=== PATIENT | female | born 1995 | race Caucasian/White ===

== ENCOUNTER 2018-01-28 02:05 | Emergency (ER) | payer BC ==
[~2018-01-28] VITALS: Ht 167.6 cm; Wt 114.7 kg
[2018-01-28 02:08] VITALS: TEMP 37.4; Ht 167.6 cm; Wt 114.7 kg
[2018-01-28] MEDS ORDERED: CIPRO 0.2%/HYDROCORTISONE 1% OTIC SUSP 10 ML BTL OT ONE (02:30)
[2018-01-28] MEDS ORDERED: NORCO 5/325MG HOME PACK PO ONE (02:30)
[2018-01-28 02:56] VITALS: BP 139/74; PULSE 85; O2SAT 96
--- NOTE | 2018-01-28 08:19 | EMERGENCY ROOM VISIT NOTE ---
ED Visit Note First contact with patient: 02:17 CHIEF COMPLAINT: Earache HISTORY OF PRESENT ILLNESS: This 23-year-old female patient presents to the emergency department and states they have had a right sided earache worsening over the past 2 days. The pain is moderate, and is gradually increasing. They have noticed swelling and tenderness around the ear canal and pain below the ear on the upper neck. The pain is rated as dull and 7/10. The patient has did not been swimming recently. The patient does not have a history of ear problems. The patient has had other URI symptoms and is currently on Augmentin from her PCP for OM. The patient has do not had a fever. The patient has taken nothing [id number] for relief of the pain. REVIEW OF SYSTEMS: A 6 system review of systems was completed with positives and pertinent negatives listed in the HPI. ALLERGIES: No known allergies MEDICATIONS: See EMR PMH: See EMR SOCIAL HISTORY: Lives locally PHYSICAL EXAM: Vital Signs: Reviewed Nurse's notes, vital signs stable. GENERAL : White female, in no acute distress, non toxic in appearance, well developed, well nourished. SKIN: Normal. MOUTH: The pharynx is normal in appearance and the tonsils are not enlarged. The airway is patent. There are no exudates over the tonsils. EARS: The right external auditory canal is swollen and inflamed and there is positive tragal tenderness. The tympanic membrane is not visualized. The Left tympanic membrane is pearly alvarado without erythema or bulging and the external auditory canal is clear. HEART: Regular rate and rhythm without murmurs gallops or rubs. LUNGS: Clear to auscultation bilaterally without wheezes, rales or rhonchi. No dullness to percussion. No accessory muscle use. No retractions. ED COURSE: I examined the patient. A wick was easily placed in the right ear by myself. Cipro HC otic drops were placed in the right ear. She will be given a home pack of Vicodin. The patient was discharged home in stable condition. Allergies Coded Allergies: No Known Allergies (Unverified , 01/28/18) Vital Signs Date Time Temp Pulse Resp B/P (MAP) Pulse Ox O2 Delivery O2 Flow Rate FiO2 01/28/18 02:56 85 16 139/74 96 01/28/18 02:08 37.4 91 16 146/98 96 Room Air Medications Administered Medications (Trade) Dose Ordered Sig/Rupa Route Start Time Stop Time Status Last Admin Dose Admin Ciprofloxacin/ Hydrocortisone (Cipro Hc Otic Susp) 2 drops NOW ONCE OT 01/28/18 02:30 3 02:31 DC 01/28/18 02:36 2 DROPS Acetaminophen/ Hydrocodone Bitart ([place] 5/325mg Home Pack) 1 homepack UD ONCE PO 01/28/18 02:30 01/28/18 02:31 DC 01/28/18 02:36 1 HOMEPACK Departure Information Impression Primary Impression: Right otitis externa Dispostion Home / Self-Care Condition GOOD Forms HOME CARE DOCUMENTATION FORM, IMPORTANT VISIT INFORMATION Patient Instructions My [facility], ED Otitis Externa Additional Instructions You were seen and evaluated today on an emergency basis only. This is not a substitute for, or an effort to provide, complete comprehensive medical care. It is not possible to recognize and treat all injuries or illnesses in a single emergency department visit. For this reason it is recommended that you followup with your primary care physician next week with any ongoing or persistent symptoms. Use Cipro HC drops: 3 drops into the right ear twice daily for the next 7 days For baseline pain relief you may alternate ibuprofen and acetaminophen every 4 hours for pain control. Take 600 mg ibuprofen (Advil) and then 4 hours later take 1000 mg acetaminophen (Tylenol). Do not take more than 3000 mg acetaminophen in a single day. [place] (hydrocodone/acetaminophen) 5/325 mg (homepack) every 6 hours as needed for worsening breakthrough pain. Do not drink or drive on [place]. This medication will likely make you tired. Do not take [place] and Tylenol at the same time as both contain acetaminophen. [place] may cause constipation. You may wish to take an [id number] stool softener like Colace if this occurs. You are welcome to return to the emergency department anytime with new, worsening, or concerning symptoms.
[2018-01-29] MEDS ORDERED: IBUP-1050 PO (15:20)
[2018-01-29] MEDS ORDERED: SERT-234 PO (15:20)
[2018-01-29] MEDS ORDERED: SACC250C3 PO (17:46)
[2018-01-29] MEDS ORDERED: CPR750 PO (17:46)
== END 2018-01-28 02:57 | disposition home or self-care (01) ==
LOC: C.EDB 02:06 → C.EDA 02:57
DX: H60.91 Unspecified otitis externa, right ear (principal)

== ENCOUNTER 2018-01-29 13:11 | Emergency (ER) | payer BC ==
[~2018-01-29] VITALS: Ht 167.6 cm; Wt 112.7 kg
[2018-01-29 13:15] VITALS: TEMP 36.8; Ht 167.6 cm; Wt 112.7 kg
--- NOTE | 2018-01-29 13:35 | EMERGENCY ROOM VISIT NOTE ---
History Report prepared by Sharonda: Ronaldo Campbell Under the Supervision of: Dr. Jaspreet Fernandez M.D. First contact with patient: 13:20 Chief Complaint: FACIAL PAIN/INJURY Stated Complaint: SWOLLEN FACE, EAR, JAW, NECK PAIN History of Present Illness The patient is a 23 year old female who presents to the Emergency Room with complaints of worsening right ear pain that started 2 weeks ago. She states that she was seen here yesterday morning for what was diagnosed as an external right ear infection. The patient says that the ear pain has been worsening and she is now having swelling that is spreading to the right side of her face, jaw , and mouth. She states that she had been on Amoxicillin 2 weeks ago, and finished that, but the swelling started again a few days ago, so she was put on another antibiotic. She adds that she had a wick put in the right ear when she was here yesterday morning. The patient notes that she has been nauseous but that may be due to not eating much due to difficulty opening her jaw. She says that she has been able to drink, and she does not have problems swallowing. The patient adds that she has been having some chills. The patient denies any fevers , cough, congestion, vomiting, or diarrhea. The patient notes that she has not been swimming recently. She adds that she has a history of hypertension under stressful situations. Source of History: patient Onset: 2 weeks ago Position: ear (right) Quality: other (pain) Timing: worsening Associated Symptoms: + chills, + nausea, No fevers, No cough (or congestion) , No vomiting, No diarrhea Note: Associated symptoms: Right-sided facial swelling. Review of Systems See HPI for pertinent positives and negatives. A total of ten systems were reviewed and were otherwise negative. Past Medical & Surgical Medical Problems: (1) HTN (hypertension) Family History Hypertension Social History Smoking Status: Never Smoker Smokeless Tobacco Use: No Alcohol Use: occasionally Occupation Status: employed Current/Historical Medications Scheduled Ciprofloxacin (Ciprofloxacin HCl), 1 TAB PO BID Saccharomyces Boulardii (Florastor), 1 CAP PO BID Sertraline (Zoloft), 100 MG PO DAILY Scheduled PRN Ibuprofen (Advil), 200-600 MG PO UD PRN for Pain Allergies Coded Allergies: No Known Allergies (Unverified , 01/29/18) Physical Exam Vital Signs Date Time Temp Pulse Resp B/P (MAP) Pulse Ox O2 Delivery O2 Flow Rate FiO2 01/29/18 18:24 63 20 158/82 97 Room Air 01/29/18 16:15 62 16 151/97 95 Room Air 01/29/18 14:43 60 16 132/90 99 Room Air 01/29/18 13:15 36.8 70 18 159/101 97 Room Air Physical Exam GENERAL: Awake, alert, uncomfortable-appearing, in no distress HENT: Dry mucous membranes. Erythema and edema to the right auricle, pre and post auricular region with mastoid tenderness. External right auditory canal is edematous with serous discharge. Right TM with injection and edema, mild right submandibular edema. No oropharyngeal edema, tongue elevation, or trismus. No pain with tracheal manipulation, no stridor. EYES: Normal conjunctiva. Sclera non-icteric. NECK: Supple. No nuchal rigidity. FROM. No JVD. RESPIRATORY: Clear to auscultation. CARDIAC: Regular rate, normal rhythm. Extremities warm and well perfused. Pulses equal. ABDOMEN: Soft, non-distended. No tenderness to palpation. No rebound or guarding. No masses. RECTAL: Deferred. MUSCULOSKELETAL: Chest examination reveals no tenderness. The back is symmetrical on inspection without obvious abnormality. There is no CVA tenderness to palpation. No joint edema. LOWER EXTREMITIES: Calves are equal size bilaterally and non-tender. No edema. No discoloration. NEURO: Normal sensorium. No sensory or motor deficits noted. SKIN: No rash or jaundice noted. Medical Decision & Procedures ER Provider Diagnostic Interpretation: Radiology results as stated below per my review and radiologist interpretation: SOFT TISSUE NECK WITH CLINICAL HISTORY: 23 years-old Female presenting with right mastoid redness/swelling, r/o mastoiditis/ludwigs angina, right hand pain and difficulty hearing from right year, right facial swelling. TECHNIQUE: Multidetector CT of the neck was performed 115 mL of Optiray 320. IV contrast: None. A dose lowering technique was used consistent with the principles of ALARA (as low as reasonably achievable). COMPARISON: None. CT DOSE (mGy.cm): The estimated cumulative dose is 642.29 mGy.cm. FINDINGS: Oral Surgery Physician topogram: Unremarkable. Limited intracranial evaluation within normal limits. Lipoma noted in the region of the tuber cinereum. Orbits normal. Mucosal thickening of the ethmoid air cells. Trace fluid in the right mastoid air cells with opacification of the right middle ear. Partial opacification/obstruction of the right external auditory canal. Prominence of adenoidal lymphoid tissue in the nasopharynx. No osseous erosion or mar intracranial extension. Adjacent vasculature remain patent. Mild periauricular inflammatory change. No evidence of suspicious nodular enhancement to suggest a mass. Valleculae and piriform sinuses preserved. No displacement of the parapharyngeal fat planes. Several enlarged bilateral cervical lymph nodes primarily in the jugulodigastric region, measuring up to 2.3 cm in the long axis on the right and 1.8 cm in the long axis on the left. Thyroid normal. Submandibular and parotid glands normal. Cervical spine normal. Lung apices clear. IMPRESSION: 1. Findings consistent with acute otitis media of the right middle ear and likely reactive inflammatory change and swelling of the right external auditory canal and periauricular soft tissues. 2. Bilateral reactive cervical lymphadenopathy. Electronically signed by: Matty Casey M.D. 01/29/2018 3:14 PM Dictated Date/Time: 01/29/2018 3:06 PM CHEST ONE VIEW PORTABLE CLINICAL HISTORY: 23 years-old Female presenting with Evaluate Fever/Sepsis. TECHNIQUE: Portable upright AP view of the chest was obtained. COMPARISON: None. FINDINGS: Cardiopericardial silhouette mildly prominent allowing for AP technique. Lungs and pleural spaces clear. Osseous structures normal. Upper abdomen normal. IMPRESSION: 1. Mildly prominent cardiopericardial silhouette otherwise no acute cardiopulmonary disease. Electronically signed by: Matty Casey M.D. 01/29/2018 2:12 PM Dictated Date/Time: 01/29/2018 2:11 PM SOFT TISSUE NECK W/O CONTRAST CLINICAL HISTORY: 23 years-old Female presenting with Right mastoid swelling, redness, ttp r/o mastoiditis. TECHNIQUE: Multisequence, multiplanar MR imaging of the neck was performed without the use of intravenous contrast. IV contrast: None. COMPARISON: Contrast enhanced CT of the neck performed earlier the same day. FINDINGS: Localizer images: Unremarkable. Fluid in the right middle ear and right mastoid air cells. Extensive soft tissue swelling of the right external auditory canal. Multiple prominent right intraparotid lymph nodes. Subcutaneous edema noted in the right periauricular region and extending inferiorly along the superficial subcutaneous tissue overlying the right parotid gland. Mild prominence of adenoidal lymphoid tissue, likely reactive. Prominent bilateral cervical lymph nodes in the jugulodigastric region, likely reactive. No prevertebral edema or retropharyngeal fluid collection. Cervical spine normal. Limited intracranial evaluation normal. Temporomandibular joints normal. IMPRESSION: Redemonstration of findings suspicious for right acute otitis media with fluid in the mastoid air cells and significant inflammatory change in the right external auditory canal and adjacent soft tissues. Electronically signed by: Matty Casey M.D. 01/29/2018 5:03 PM Dictated Date/Time: 01/29/2018 5:00 PM Laboratory Results 01/29/18 13:54 Red Blood Count 5.19, Mean Corpuscular Volume 84.2, Mean Corpuscular Hemoglobin 27.2, Mean Corpuscular Hemoglobin Concent 32.3, Mean Platelet Volume 11.0, Neutrophils (%) (Auto) 71.8, Lymphocytes (%) (Auto) 18.2, Monocytes (%) (Auto) 7.6, Eosinophils (%) (Auto) 1.9, Basophils (%) (Auto) 0.3, Neutrophils # (Auto) 7.00, Lymphocytes # (Auto) 1.78, Monocytes # (Auto) 0.74, Eosinophils # (Auto) 0.19, Basophils # (Auto) 0.03 01/29/18 13:54 Test 01/29/18 13:54 White Blood Count 9.76 K/uL (4.8-10.8) Red Blood Count 5.19 M/uL (4.2-5.4) Hemoglobin 14.1 g/dL (12.0-16.0) Hematocrit 43.7 % (37-47) Mean Corpuscular Volume 84.2 fL (80-100) Mean Corpuscular Hemoglobin 27.2 pg (25-34) Mean Corpuscular Hemoglobin Concent 32.3 g/dl (32-36) Platelet Count 235 K/uL (130-400) Mean Platelet Volume 11.0 fL (7.4-10.4) Neutrophils (%) (Auto) 71.8 % Lymphocytes (%) (Auto) 18.2 % Monocytes (%) (Auto) 7.6 % Eosinophils (%) (Auto) 1.9 % Basophils (%) (Auto) 0.3 % Neutrophils # (Auto) 7.00 K/uL (1.4-6.5) Lymphocytes # (Auto) 1.78 K/uL (1.2-3.4) Monocytes # (Auto) 0.74 K/uL (0.11-0.59) Eosinophils # (Auto) 0.19 K/uL (0-0.5) Basophils # (Auto) 0.03 K/uL (0-0.2) RDW Standard Deviation 40.6 fL (36.4-46.3) RDW Coefficient of Variation 13.2 % (11.5-14.5) Immature Granulocyte % (Auto) 0.2 % Immature Granulocyte # (Auto) 0.02 K/uL (0.00-0.02) Anion Gap 6.0 mmol/L (3-11) Est Creatinine Clear Calc Drug Dose 162.8 ml/min Estimated GFR () 143.2 Estimated GFR (Non- 123.6 BUN/Creatinine Ratio 11.2 (10-20) Lactic Acid Level 0.6 mmol/L (0.4-2.0) Calcium Level 9.1 mg/dl (8.5-10.1) Total Bilirubin 0.5 mg/dl (0.2-1) Direct Bilirubin 0.2 mg/dl (0-0.2) Aspartate Amino Transf (AST/SGOT) 8 U/L (15-37) Alanine Aminotransferase (ALT/SGPT) 32 U/L (12-78) Alkaline Phosphatase 105 U/L (45-117) Total Protein 7.2 gm/dl (6.4-8.2) Albumin 3.2 gm/dl (3.4-5.0) Laboratory results reviewed by me Medications Administered Medications (Trade) Dose Ordered Sig/Rupa Route Start Time Stop Time Status Last Admin Dose Admin Sodium Chloride 2,000 ml @ 999 mls/hr Q2H1M STAT IV 01/29/18 13:38 01/29/18 15:38 DC 01/29/18 13:56 999 MLS/HR Piperacillin Sod/ Tazobactam Sod (Zosyn Iv) 4.5 gm NOW STAT IV 01/29/18 13:38 01/29/18 13:47 DC 01/29/18 14:38 4.5 GM Vancomycin HCl 2250 mg/Sodium Chloride 545 ml @ 200 mls/hr ONE STAT IV 01/29/18 13:38 01/29/18 16:21 DC 01/29/18 15:28 200 MLS/HR Dexamethasone Sodium Phosphate (Dexamethasone Inj Pf) 10 mg NOW ONCE IV 01/29/18 13:45 01/29/18 13:47 DC 01/29/18 13:56 10 MG Ketorolac Tromethamine (Toradol Inj) 15 mg NOW STAT IV 01/29/18 14:07 01/29/18 14:09 DC 01/29/18 14:12 15 MG Ciprofloxacin (Cipro Tab) 750 mg NOW STAT PO 01/29/18 17:39 01/29/18 17:41 DC 01/29/18 17:48 750 MG Ciprofloxacin/ Hydrocortisone (Cipro Hc Otic Susp) 2 drops NOW STAT OT 01/29/18 18:04 01/29/18 18:07 DC 01/29/18 18:04 2 DROPS ED Course 1327: The patient was evaluated in room C11B. A complete history and physical exam was performed. 1557: I reevaluated the patient and she is feeling better but is coke still cleaner on the mastoid so we will do an MRI. 1730: I discussed the patient with Dr. Nancy Cardona ENT. 1820: I reevaluated the patient and she is resting. Discussed results and discharge instructions: she verbalized understanding and agreement. The patient is ready for discharge. Medical Decision I reviewed the patient's past medical history, medications, and the nursing notes as described above. 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 The patient is a 23 y/o woman who presents to the emergency department with worsening right ear pain and facial swelling in the setting of being treated for otitis media 2 weeks ago having completed a course of Amoxicillin and now on course of Augmentin as well as with ear wick with cipro gtts after being seen in ED yesterday additionally diagnosed with otitis externa per HPI. On arrival, the patient is uncomfortable but in NAD, AFVSS. Has erythema, swelling , ttp of right auricle as well as pre and post auricular areas with +mastoid ttp. TM as well as EAC with injection and edema. Minimal right submandibular swelling. No oropharyngeal edema, tongue elevation, or trismus. No pain with tracheal manipulation. Labs unremarkable including wbc and lactate wnl. CT neck negative for osseous involvement. Given mastoid ttp MRI done to r/o mastoiditis and again negative for osseous erosion or intracranial extension. Findings d/w OM with surrounding inflammatory change. Patient initially treated empirically with broad spectrum antibiotics given high suspicion for mastoiditis. Given reassuring w/u plan for d/c to broadened oral abx coverage for pseudomonas and atypicals with fluoroquinolone. Case d/w Dr. Cruz, ENT on-call, and agrees with plan to add Cipro 750mg BID in addition to patient's current treatment. Otherwise patient feeling improved after IVF hydration, dexamethasone, NSAIDS. Ear wick replaced. Findings and plan for ENT follow-up to be seen on Wednesday reviewed with patient. Patient agreeable and d/c'd per discharge instructions. Medication Reconcilliation Current Medication List: was personally reviewed by me Blood Pressure Screening Patient's blood pressure: Elevated blood pressure Blood pressure disposition: Elevated BP felt to be situational Consults Time Called: 1725 Consulting Physician: Dr. Nancy Cardona ENT Returned Call: 1730 I discussed the patient with Dr. Nancy Cardona ENT. Impression Primary Impression: Otitis media of right ear Additional Impression: Otitis externa of right ear Scribe Attestation The scribe's documentation has been prepared under my direction and personally reviewed by me in its entirety. I confirm that the note above accurately reflects all work, treatment, procedures, and medical decision making performed by me. Departure Information Dispostion Home / Self-Care Prescriptions Saccharomyces Boulardii (Florastor) 250 Mg Cap 1 CAP PO BID for 10 Days, #20 CAP Prov: Jasprete Fernandez M.D. 01/29/18 Ciprofloxacin (Ciprofloxacin HCl) 750 Mg Tab 1 TAB PO BID for 10 Days, #20 TABS Prov: Jaspreet Fernandez M.D. 01/29/18 Referrals No Doctor, Assigned (PCP) Jaiden Cruz M.D. Patient Instructions ED Otitis Externa, ED Otitis Media Acute Adult, My [facility] Additional Instructions Please follow up with ENT, Dr. Cruz, on Wednesday to be seen on Wednesday for re- evaluation. You have a persistent inner and external ear infection. Otherwise, your exam, lab results, CT scan and MRI did not show signs of an emergent condition at this time. Acetaminophen or ibuprofen for pain and fevers as needed. Continue your current Augmentin oral antibiotic as well as your ciprofloxacin ear drops. Add Ciprofloxacin oral antibiotic for additional bacterial coverage. Drink plenty of fluids to ensure hydration. Return to the emergency department for worsening symptoms as described in the accompanying instructions. Problem Qualifiers
[2018-01-29] MEDS ORDERED: PIPERACILLIN/TAZOBACTAM 4.5 GM/100ML D5W IV STA (13:38)
[2018-01-29] MEDS ORDERED: SODIUM CHLORIDE 0.9% 1000ML 2,000 ML IV STA (13:38)
[2018-01-29] MEDS ORDERED: VANCOMYCIN INJ 2,250 MG in SODIUM CHLORIDE 0.9% 500ML 500 ML IV STA (13:38)
[2018-01-29] MEDS ORDERED: DEXAMETHASONE **PF** INJ 10 MG/ML VIAL IV ONE (13:45)
[2018-01-29] MEDS ORDERED: VANCOMYCIN CONSULT ACTIVE PRN (13:45)
[2018-01-29] MEDS ORDERED: OPTIRAY 320 IV PRN (14:00)
[2018-01-29] MEDS ORDERED: KETOROLAC TROMETHAMINE 30 MG/ML VIAL IV STA (14:07)
[2018-01-29 14:13] LABS: BASO % 0.3 %; BASO ABS # 0.03 K/uL (0-0.2); EOS % 1.9 %; EOS ABS # 0.19 K/uL (0-0.5); HEMATOCRIT 43.7 % (37-47); HEMOGLOBIN 14.1 g/dL (12.0-16.0); IG# 0.02 K/uL (0.00-0.02); LYMPH % 18.2 %; LYMPH ABS # 1.78 K/uL (1.2-3.4); MEAN CELL VOLUME 84.2 fL (80-100); MEAN CORPUSCULAR HEMOGLOBIN 27.2 pg (25-34); MEAN CORPUSCULAR HGB CONC 32.3 g/dl (32-36); MONO % 7.6 %; MONO ABS # 0.74 K/uL (0.11-0.59); NEUT % 71.8 %; PLATELET COUNT 235 K/uL (130-400); RED CELL DISTRIBUTION WIDTH CV 13.2 % (11.5-14.5); RED CELL DISTRIBUTION WIDTH SD 40.6 fL (36.4-46.3); WHITE BLOOD COUNT 9.76 K/uL (4.8-10.8)
--- NOTE | 2018-01-29 14:13 | DIAGNOSTIC IMAGING REPORT ---
CHEST ONE VIEW PORTABLE CLINICAL HISTORY: 23 years-old Female presenting with Evaluate Fever/Sepsis. TECHNIQUE: Portable upright AP view of the chest was obtained. COMPARISON: None. FINDINGS: Cardiopericardial silhouette mildly prominent allowing for AP technique. Lungs and pleural spaces clear. Osseous structures normal. Upper abdomen normal. IMPRESSION: 1. Mildly prominent cardiopericardial silhouette otherwise no acute cardiopulmonary disease. Electronically signed by: Matty Casey M.D. 01/29/2018 2:12 PM Dictated Date/Time: 01/29/2018 2:11 PM
[2018-01-29 14:31] LABS: ALBUMIN 3.2 gm/dl (3.4-5.0); CALCIUM 9.1 mg/dl (8.5-10.1); CREATININE 0.69 mg/dl (0.60-1.20); POTASSIUM 4.1 mmol/L (3.5-5.1)
[2018-01-29 14:34] LABS: TOTAL PROTEIN 7.2 gm/dl (6.4-8.2)
--- NOTE | 2018-01-29 15:15 | DIAGNOSTIC IMAGING REPORT ---
SOFT TISSUE NECK WITH CLINICAL HISTORY: 23 years-old Female presenting with right mastoid redness/swelling, r/o mastoiditis/ludwigs angina, right hand pain and difficulty hearing from right year, right facial swelling. TECHNIQUE: Multidetector CT of the neck was performed 115 mL of Optiray 320. IV contrast: None. A dose lowering technique was used consistent with the principles of ALARA (as low as reasonably achievable). COMPARISON: None. CT DOSE (mGy.cm): The estimated cumulative dose is 642.29 mGy.cm. FINDINGS: Mobile Marketing Manager topogram: Unremarkable. Limited intracranial evaluation within normal limits. Lipoma noted in the region of the tuber cinereum. Orbits normal. Mucosal thickening of the ethmoid air cells. Trace fluid in the right mastoid air cells with opacification of the right middle ear. Partial opacification/obstruction of the right external auditory canal. Prominence of adenoidal lymphoid tissue in the nasopharynx. No osseous erosion or mar intracranial extension. Adjacent vasculature remain patent. Mild periauricular inflammatory change. No evidence of suspicious nodular enhancement to suggest a mass. Valleculae and piriform sinuses preserved. No displacement of the parapharyngeal fat planes. Several enlarged bilateral cervical lymph nodes primarily in the jugulodigastric region, measuring up to 2.3 cm in the long axis on the right and 1.8 cm in the long axis on the left. Thyroid normal. Submandibular and parotid glands normal. Cervical spine normal. Lung apices clear. IMPRESSION: 1. Findings consistent with acute otitis media of the right middle ear and likely reactive inflammatory change and swelling of the right external auditory canal and periauricular soft tissues. 2. Bilateral reactive cervical lymphadenopathy. Electronically signed by: Matty Casey M.D. 01/29/2018 3:14 PM Dictated Date/Time: 01/29/2018 3:06 PM
[2018-01-29] MEDS ORDERED: SERT-234 PO (15:20)
[2018-01-29] MEDS ORDERED: IBUP-1050 PO (15:20)
--- NOTE | 2018-01-29 17:04 | DIAGNOSTIC IMAGING REPORT ---
SOFT TISSUE NECK W/O CONTRAST CLINICAL HISTORY: 23 years-old Female presenting with Right mastoid swelling, redness, ttp r/o mastoiditis. TECHNIQUE: Multisequence, multiplanar MR imaging of the neck was performed without the use of intravenous contrast. IV contrast: None. COMPARISON: Contrast enhanced CT of the neck performed earlier the same day. FINDINGS: Localizer images: Unremarkable. Fluid in the right middle ear and right mastoid air cells. Extensive soft tissue swelling of the right external auditory canal. Multiple prominent right intraparotid lymph nodes. Subcutaneous edema noted in the right periauricular region and extending inferiorly along the superficial subcutaneous tissue overlying the right parotid gland. Mild prominence of adenoidal lymphoid tissue, likely reactive. Prominent bilateral cervical lymph nodes in the jugulodigastric region, likely reactive. No prevertebral edema or retropharyngeal fluid collection. Cervical spine normal. Limited intracranial evaluation normal. Temporomandibular joints normal. IMPRESSION: Redemonstration of findings suspicious for right acute otitis media with fluid in the mastoid air cells and significant inflammatory change in the right external auditory canal and adjacent soft tissues. Electronically signed by: Matty Casey M.D. 01/29/2018 5:03 PM Dictated Date/Time: 01/29/2018 5:00 PM
[2018-01-29] MEDS ORDERED: CIPROFLOXACIN 500 MG TAB PO STA (17:39)
[2018-01-29] MEDS ORDERED: CPR750 PO (17:46)
[2018-01-29] MEDS ORDERED: SACC250C3 PO (17:46)
[2018-01-29] MEDS ORDERED: CIPRO 0.2%/HYDROCORTISONE 1% OTIC SUSP 10 ML BTL OT STA (18:04)
[2018-01-29 18:24] VITALS: BP 158/82; PULSE 63; O2SAT 97
== END 2018-01-29 18:48 | disposition home or self-care (01) ==
LOC: C.EDB 13:13 → C.EDC 18:48
DX: H66.91 Otitis media, unspecified, right ear (principal); H60.91 Unspecified otitis externa, right ear; I10 Essential (primary) hypertension; Z82.49 Family history of ischemic heart disease and other diseases of the circulatory system; Z79.899 Other long term (current) drug therapy